=== PATIENT | male | born 1985 | race Caucasian/White ===

== ENCOUNTER → 2020-05-21 08:24 | Outpatient (BNVA) | payer OTHER, SELFPAY | PROVIDERS: PCP Nurse Practitioner Family; Visit Provider Orthopaedic Surgery ==

== ENCOUNTER 2020-07-02 08:54 | Outpatient (REF) | payer OTHER, SELFPAY ==
[2020-07-02 09:54] LABS: Hematocrit 46.2 % (42-52); Hemoglobin 15.5 g/dl (14.0-18.0); Mean Corpuscular HGB Conc 33.5 g/dl (31.0-36.0); Mean Corpuscular Hemoglobin 29.8 pg (27.0-33.0); Mean Corpuscular Volume 88.8 fL (80-98); Mean Platelet Volume 9.1 fL (9.4-12.4); Platelet Count 254 X10*3/uL (160-400); Red Cell Distribution Width 12.2 % (11.0-16.0); White Blood Count 6.6 X10*3/uL (4.8-10.8)
[2020-07-02 10:41] LABS: Thyroid Stimulating Hormone 1.05 uIU/mL (0.32-4.0); Vitamin D 25-OH Total 21.1 ng/mL (>30)
[2020-07-02 10:49] LABS: Alanine Aminotransferase 24 U/L (0-40); Albumin Level 4.7 g/dL (3.5-5.0); Alkaline Phosphatase 49 U/L (39-117); Anion Gap 15 (12-20); Aspartate Amino Transferase 17 U/L (5-37); Bilirubin Total 0.3 mg/dL (0.0-1.0); Blood Urea Nitrogen 20 mg/dL (9-16); Calcium 9.3 mg/dL (8.4-10.2); Carbon Dioxide 26 mmol/L (22-29); Chloride 104 mmol/L (96-108); Estimated Glomerular Filt Rate > 60; Glucose Random 112 mg/dL (60-115); Potassium 4.5 mmol/L (3.3-5.1); Sodium 140 mmol/L (135-145); Total Protein 7.2 g/dL (6.5-8.0)
== END 2020-07-02 08:55 | disposition home or self-care (01) ==
LOC: HO.LAB 08:54
PROVIDERS: PCP Nurse Practitioner Family; Visit Provider Nurse Practitioner Family
DX: R53.83 Other fatigue (principal)
CPT/HCPCS: 36415; 80053; 82306; 84443; 85027

== ENCOUNTER 2021-04-05 11:04 | Outpatient (REF) | payer OTHER, SELFPAY ==
--- NOTE | ~2021-04-05 | XR_ITS ---
EXAMINATION: XR LUMBOSACRAL SPINE CLINICAL INFORMATION: Dorsalgia, unspecified. COMPARISON: MRI dated 05/17/2019 and radiographs dated 05/03/2019 TECHNIQUE: Three views of the lumbosacral spine. FINDINGS: There is moderate loss of intravertebral disc height at L4-L5 with endplate osteophytes, slightly increased from prior. There is slight straightening of the normal lumbar lordosis. Posterior disc osteophytes are evident at this level. Other levels appear relatively well preserved by comparison. Vertebral body heights are normal. SI joints are normal. Minimal right convex lumbar curvature. Soft tissues are unremarkable. XR/XR lumbar spine 2-3V IMPRESSION: Slight progression of [id number] degenerative disc disease at L4-L5.
== END 2021-04-05 11:05 | disposition home or self-care (01) ==
LOC: HO.HMGCX 11:04
PROVIDERS: PCP Nurse Practitioner Family; Visit Provider Physician Assistant Medical
DX: M54.9 Dorsalgia, unspecified (principal)
CPT/HCPCS: 72100

== ENCOUNTER 2021-04-12 08:00 | Outpatient (RCR) | payer OTHER, SELFPAY | END 2021-04-14 08:31 | disposition home or self-care (01) | LOC: HO.PT 08:00 | PROVIDERS: PCP Nurse Practitioner Family; Visit Provider Nurse Practitioner Family | DX: M25.552 Pain in left hip (principal); M79.652 Pain in left thigh | CPT/HCPCS: 97110; 97140; 97162; 97530 ==

== ENCOUNTER 2021-04-14 22:37 | Emergency (ER) | payer OTHER, SELFPAY ==
[2021-04-14 22:45] VITALS: BP 167/100; PULSE 90; RESP 18; TEMP 36.9; O2SAT 97; BMI 32.8
== END 2021-04-15 06:24 | disposition left against medical advice (07) ==
PROVIDERS: Emergency Provider Emergency Medicine; PCP Nurse Practitioner Family
DX: M79.605 Pain in left leg (principal)
CPT/HCPCS: 99281; 99282

== ENCOUNTER 2021-04-16 14:15 | Outpatient (REF) | payer OTHER, SELFPAY ==
--- NOTE | ~2021-04-16 | MR_ITS ---
MR LUMBAR SPINE WITHOUT IV CONTRAST CLINICAL INFORMATION: Low back pain. Radiating leg pain. COMPARISON: Lumbar spine MRI 05/17/2019. TECHNIQUE: MRI of the lumbar spine was obtained using routine sequences without contrast. FINDINGS: Straightening of the lumbar lordosis again noted. There are 5 nonrib-bearing lumbar-type vertebral bodies. Vertebral body heights are maintained. There is moderate disc volume loss and disc desiccation at L4-L5. There is no bone marrow edema. There are no acute fractures. Conus terminates at the L1-L2 level. No significant extraspinal soft tissue findings. L1-L2: Disc contour remains normal. Mild bilateral facet arthropathy. Epidural lipomatosis results in increased mild thecal sac effacement. No foraminal stenosis. L2-L3: There is a diffuse annular disc bulge and there is mild bilateral facet arthropathy. Epidural lipomatosis. Progressive moderate thecal sac effacement by epidural lipomatosis. No significant foraminal stenosis. L3-L4: Diffuse annular disc bulge and epidural lipomatosis result in similar mild thecal sac effacement. Similar left lateral disc protrusion resulting in mass effect on the exiting left L3 nerve root. L4-L5: Large broad-based inferiorly migrating central disc extrusion has mildly decreased in size, resulting in similar severe central canal stenosis. No significant foraminal stenosis. L5-S1: Disc contour is normal. Mild bilateral facet arthropathy. No central canal stenosis and no foraminal stenosis. MR/MR lumbar spine wo con IMPRESSION: - At L4-L5, there has been a slight decrease in size of a large inferiorly migrating central disc extrusion that results in persistent severe central canal stenosis and mass effect on the cauda equina nerve roots. - At L3-L4, there is a stable left lateral disc protrusion resulting in mass effect on the exiting left L3 nerve root. - Epidural lipomatosis results in progressive mild thecal sac effacement at L1-L2 and progressive moderate thecal sac effacement at L2-L3.
== END 2021-04-16 14:16 | disposition home or self-care (01) ==
LOC: HO.MRI 14:15
PROVIDERS: Visit Provider Physician Assistant Surgical
DX: M54.50 Low back pain, unspecified (principal); M79.606 Pain in leg, unspecified
CPT/HCPCS: 72148

== ENCOUNTER 2021-09-11 07:14 | Outpatient (REF) | payer OTHER, SELFPAY ==
[2021-09-11 07:27] LABS: MANUAL DIFF FLAG NO
[2021-09-11 07:59] LABS: Basophils Percent Auto 0.6 % (0-2); Eosinophils Absolute Auto 0.3 X10*3/uL (0.0-0.4); Eosinophils Percent Auto 3.8 % (0-4); Hematocrit 47.7 % (42.0-52.0); Hemoglobin 15.8 g/dl (14.0-18.0); Imm Gran Abs Auto 0.05 X10*3/uL (0.00-0.03); Imm Gran Pct Auto 0.7 % (0.0-0.4); Lymphocytes Absolute Auto 1.3 X10*3/uL (1.2-4.9); Mean Corpuscular HGB Conc 33.1 g/dl (31.0-36.0); Mean Corpuscular Hemoglobin 29.3 pg (27.0-33.0); Mean Corpuscular Volume 88.3 fL (80.0-98.0); Mean Platelet Volume 8.7 fL (9.4-12.4); Monocytes Absolute Auto 0.8 X10*3/uL (0.1-1.2); Monocytes Percent Auto 11.2 % (2-11); Neutrophils Absolute Auto 4.6 x10*3/uL (2.0-8.3); Neutrophils Percent Auto 64.7 % (45-73); Platelet Count 252 X10*3/uL (160-400); Red Cell Distribution Width 12.5 % (11.0-16.0); White Blood Count 7.1 X10*3/uL (4.8-10.8)
[2021-09-11 08:28] LABS: Alanine Aminotransferase 45 U/L (0-40); Albumin Level 4.4 g/dL (3.5-5.0); Alkaline Phosphatase 57 U/L (39-117); Anion Gap 13 (12-20); Aspartate Amino Transferase 24 U/L (5-37); Bilirubin Total 0.5 mg/dL (0.0-1.0); Blood Urea Nitrogen 16 mg/dL (9-16); Calcium 9.8 mg/dL (8.4-10.2); Carbon Dioxide 27 mmol/L (22-29); Chloride 105 mmol/L (96-108); Estimated Glomerular Filt Rate > 60; Glucose Random 117 mg/dL (60-115); Potassium 4.6 mmol/L (3.3-5.1); Sodium 140 mmol/L (135-145); Total Protein 7.1 g/dL (6.5-8.0)
[2021-09-11 08:50] LABS: Vitamin D 25-OH Total 19.7 ng/mL (>30)
== END 2021-09-11 07:15 | disposition home or self-care (01) ==
LOC: HO.LAB 07:14
PROVIDERS: PCP Nurse Practitioner Family; Visit Provider Nurse Practitioner Family
DX: Z00.00 Encounter for general adult medical examination without abnormal findings (principal); E55.9 Vitamin D deficiency, unspecified; R53.83 Other fatigue
CPT/HCPCS: 36415; 80053; 82306; 84443; 85025

== ENCOUNTER 2021-11-11 08:00 | Outpatient (RCR) | payer OTHER, SELFPAY | END 2021-11-11 09:09 | disposition home or self-care (01) | LOC: HO.PT 08:00 | PROVIDERS: Visit Provider Nurse Practitioner Family | DX: R20.2 Paresthesia of skin (principal); G83.4 Cauda equina syndrome; Z98.890 Other specified postprocedural states | CPT/HCPCS: 97112; 97140; 97161 ==

== ENCOUNTER → 2021-11-17 08:27 | Outpatient (REF) | payer OTHER, SELFPAY | LOC: HO.SL 08:27 | PROVIDERS: PCP Nurse Practitioner Family; Visit Provider Nurse Practitioner Family | DX: G47.33 Obstructive sleep apnea (adult) (pediatric) (principal); R06.83 Snoring; R53.83 Other fatigue; E66.8 Other obesity | CPT/HCPCS: 95806 ==

== ENCOUNTER 2022-12-13 08:00 | Outpatient (RCR) | payer OTHER, SELFPAY | END 2023-01-02 08:51 | disposition home or self-care (01) | LOC: HO.PT 08:00 | PROVIDERS: PCP Nurse Practitioner Family; Visit Provider Nurse Practitioner Family | DX: M54.50 Low back pain, unspecified (principal) | CPT/HCPCS: 97110; 97161 ==